=== PATIENT | female | born 1975 | race Caucasian/White ===

== ENCOUNTER 2017-05-30 09:29 | Inpatient (IN) | payer OTHER ==
[~2017-05-30] VITALS: Ht 172.7 cm; Wt 59.4 kg
--- NOTE | 2017-05-30 09:32 | NUR ---
PRESENTS SELF TO ED DT CONSTANT HEADACHE FOR 3DAYS, PT AA04 NO APPARENT DISTRESS RESP EVEN AND UNLABORED. NO SOB. PT TEMP 101.2. NON DIAPHORETIC. NOTED WITH SLIGHT CHILLS. CONNECTED PT TO TELE MONITOR. PENDING MD MORAN.
--- NOTE | 2017-05-30 09:40 | NUR ---
MD NIELSON AT BS
[2017-05-30] MEDS ORDERED: IV NS 0.9% 1,000 ML BAG IV ONE (10:00)
[2017-05-30] MEDS ORDERED: CEFTRIAXONE 1GM BAG (ER ONLY) 1 GM/50 ML PIGGYBACK IV ONE (10:00)
[2017-05-30] MEDS ORDERED: ACETAMINOPHEN 325 MG TABLET PO ONE (10:00)
[2017-05-30] MEDS ORDERED: CEFTRIAXONE 1GM BAG (ER ONLY) 100 ML IV ONE (10:08)
[2017-05-30] MEDS ORDERED: ACETAMINOPHEN 325 MG TABLET ONE (10:08)
[2017-05-30] MEDS ORDERED: IV NS 0.9% 2,000 ML ONE (10:08)
[2017-05-30] MEDS ORDERED: IV SET PRIMARY PUMP SET 1 EA INFUS.SET MC ONE ×2 (10:09→11:40)
[2017-05-30 10:20] LABS: BASOPHILS % (AUTO) 0.2 % (0.0-2.0); HEMATOCRIT 38 % (33-45); HEMOGLOBIN 12.6 g/dL (11.5-14.8); LYMPHOCYTES # (AUTO) 0.6 /CMM (0.8-4.8); LYMPHOCYTES % (AUTO) 4.2 % (20.0-44.0); MEAN CORPUSCULAR HEMOGLOBIN 30 PG (26.0-33.0); MEAN CORPUSCULAR HGB CONC 34 g/dl (31.0-36.0); MEAN CORPUSCULAR VOLUME 89 fL (82-100); MONOCYTES # (AUTO) 0.8 /CMM (0.1-1.30); MONOCYTES % (AUTO) 5.7 % (2.0-12.0); NEUTROPHILS # (AUTO) 12.7 /CMM (1.8-8.9); NEUTROPHILS % (AUTO) 89.9 % (43.0-81.0); PLATELET COUNT (AUTO) 241 /CMM (150-450); RDW COEFFICIENT OF VARIATION 12.9 (11.5-15.0); RED BLOOD CELL COUNT(AUTO) 4.24 MIL/uL (4.0-5.2); WHITE BLOOD COUNT (AUTO) 14.2 K/uL (4.3-11.0)
--- NOTE | 2017-05-30 10:24 | NUR ---
URINE SAMPLE SENT TO LAB
--- NOTE | 2017-05-30 10:25 | NUR ---
DUE MEDS GIVEN ORDERED
[2017-05-30] MEDS ORDERED: MORPHINE SULFATE INJ 4 MG/ML DISP.SYRIN ONE (10:26)
[2017-05-30] MEDS ORDERED: ONDANSETRON HCL/PF 4 MG/2 ML VIAL ONE (10:26)
[2017-05-30 10:29] LABS: CALCIUM, SERUM 8.3 mg/dL (8.5-10.1); CARBON DIOXIDE 27 mmol/L (21-32); CHLORIDE 104 mmol/L (98-107); CREATININE 0.8 mg/dL (0.6-1.3); GLUCOSE 127 mg/dL (74-106); POTASSIUM 3.8 mmol/L (3.5-5.1); SODIUM SERUM 136 mmol/L (136-145); UREA NITROGEN, BLOOD 5 mg/dL (7-18)
[2017-05-30 10:30] LABS: INR 1.07 (0.87-1.13); PROTHROMBIN TIME 11.1 SECS (9.5-12.7)
[2017-05-30 10:30] LABS: APPEARANCE,URINE Clear (CLEAR); BILIRUBIN,URINE SMALL (NEGATIVE); BLOOD, URINE Negative Ery/uL (NEGATIVE); COLOR,URINE Yellow (YELLOW); KETONES,URINE 15 (NEGATIVE); LEUKOCYTE ESTERASE ,URINE Negative (NEGATIVE); NITRITE, URINE Negative (NEGATIVE); PH,URINE 5.5 (5.0-8.0); PROTEIN,URINE 30 mg/dl (NEGATIVE); UGLUCOSE Negative (NEGATIVE); UROBILINOGEN,URINE 0.2 EU/dL (0.2)
[2017-05-30 10:34] LABS: TROPONIN I < 0.017 ng/mL (0.00-0.056)
[2017-05-30 10:37] LABS: ALANINE AMINOTRANSFERASE 13 U/L (12-78); ALBUMIN 3.6 g/dL (3.4-5.0); ALKALINE PHOSPHATASE 42 U/L (46-116); ASPARTATE AMINOTRANSFERASE 13 U/L (15-37); BILIRUBIN,DIRECT 0.1 mg/dL (0.0-0.2); BILIRUBIN,TOTAL 0.5 mg/dL (0.2-1.0); TOTAL PROTEIN, SERUM 7.1 g/dL (6.4-8.2)
[2017-05-30 10:44] LABS: BACTERIA,URINE None seen /HPF (None Seen); MUCUS,URINE Few /LPF (None Seen); SQUAMOUS EPITHELIAL CELL,UR Few /HPF (None Seen)
--- NOTE | 2017-05-30 10:54 | NUR ---
Solo connolly in [facility] - 05/30/17 at 1055 by DRAKE REPORT GIVEN TO NURSE MIKE BETANCOURT
--- NOTE | 2017-05-30 10:54 | NUR ---
REPORT GIVEN TO NURSE MCKEON FOR ASIA
[2017-05-30] MEDS ORDERED: HYDROMORPHONE 1 MG/1 ML DISP.SYRIN ONE (10:59)
[2017-05-30] MEDS ORDERED: ONDANSETRON HCL/PF - ER 4 MG/2 ML VIAL IV ONE (11:00)
[2017-05-30] MEDS ORDERED: HYDROMORPHONE 1 MG/1 ML DISP.SYRIN IV ONE (11:00)
[2017-05-30] MEDS ORDERED: MORPHINE SULFATE INJ 10 MG/ML DISP.SYRIN IV ONE (11:00)
--- NOTE | 2017-05-30 11:03 | NUR ---
PT TAKEN TO CT SCAN.
--- NOTE | 2017-05-30 11:23 | NUR ---
TELE 310-1
--- NOTE | 2017-05-30 11:30 | NUR ---
MD SOLORZANO AT FOR LUMBAR PUNCTURE
--- NOTE | 2017-05-30 11:36 | NUR ---
PHARMACY CALLED FOR ATB
--- NOTE | 2017-05-30 11:45 | NUR ---
LUMBAR PUNCTURE DONE AT BY DR. SOLORZANO. CONSENTS SIGNED. PT TOLERATED PROCEDURE WELL. SPECIMENS SENT TO LAB. VSS. WILL MONITOR.
--- NOTE | 2017-05-30 11:49 | NUR ---
REPORT GIVEN TO LAUREANO GUTIERREZ FOR CONTINUITY OF CARE.
--- NOTE | 2017-05-30 11:51 | NUR ---
RECEIVED REPORT FROM ZEE GUNN RN
[2017-05-30] MEDS ORDERED: VANCOMYCIN 1 GM in IV D5W 250 ML IV ONE (12:00)
[2017-05-30] MEDS ORDERED: IV NS 0.9% 1,000 ML IV PRN (12:50)
[2017-05-30 12:59] LABS: CSF GLUCOSE 60 mg/dL (40-70)
[2017-05-30 13:00] LABS: CSF PROTEIN 87.6 mg/dL (15-45)
[2017-05-30] MEDS ORDERED: ZOLPIDEM TARTRATE 5 MG TABLET PO PRN (13:00)
[2017-05-30] MEDS ORDERED: MAG HYDROX/AL HYDROX/SIMETH 30 ML UDC PO PRN (13:00)
[2017-05-30] MEDS ORDERED: Z GUARD REMEDY 2 OZ OINT TP PRN (13:00)
[2017-05-30] MEDS ORDERED: MAGNESIUM HYDROXIDE 30 ML UDC PO PRN (13:00)
[2017-05-30] MEDS ORDERED: FEE PK DOSING 1 MIN EA MC ONE (13:33)
[2017-05-30] MEDS ORDERED: ACYCLOVIR IV 600 MG in IV D5W 100 ML IV SCH (14:30)
--- NOTE | 2017-05-30 15:11 | NUR ---
PT TRANSPORTED TO [address] [place] [address]
--- NOTE | 2017-05-30 15:14 | NUR ---
ISOLATION PRECAUTION OBSERED
--- NOTE | 2017-05-30 15:15 | NUR ---
RN ADMITTING ORDER PATIENT ARRIVED TO UNIT AT 1510. PATIENT PAIN LEVEL 8/10. TEMPERATURE 103.1. WILL CONTINUE TO ASSESS AND MONITOR PATIENT. WILL CONTACT MD FOR PAIN MANAGEMENT AND FEVER CONTROL
[2017-05-30] MEDS: ACETAMINOPHEN 325 MG TABLET PO PRN ×2 (15:38→21:27)
[2017-05-30 15:45] VITALS: BP 135/75
--- NOTE | 2017-05-30 15:45 | NUR ---
DE HVAC REFRIGERATION TECHNICIAN MADE AWARE OF FEVER AND PAIN. NEW ORDERS RECEIVED AND CARRIED OUT
[2017-05-30] MEDS: HYDROMORPHONE 1 MG/1 ML DISP.SYRIN IV PRN ×2 (15:48→19:58)
[2017-05-30] MEDS: IV NS 0.9% 1,000 ML IV PRN (15:48)
--- NOTE | 2017-05-30 17:10 | NUR ---
LEFT SIDE RASH NOTED BETWEEN ARMPIT AND BREAST. DE MADE AWARE. PICTURES WERE TAKEN AND PLACED IN THE CHART
--- NOTE | 2017-05-30 18:15 | NUR ---
NEW IV SITE STARTED AT LEFT FOREARM 22G.
--- NOTE | 2017-05-30 18:50 | NUR ---
RN CLOSING NOTES PATIENT IS IN BED, ALERT AND ORIENTED TO NAME, TIME AND PLACE. NO SIGNS AND SYMPTOMS OF DISTRESS. ALL NEEDS ANTICIPATED AND NURSING CARE PROVIDED. PATIENT KEPT SAFE, CLEAN AND DRY. IV SITES X2 ARE INTACT AND POTENT. PAIN LEVEL 3/10 HEADACHE. ISOLATION FOR MENINGITIS. BED IN LOW POSITION, LOCKED AND TWO SIDE RAILS ARE UP. WILL ENDORSE TO SHEETER HELPER NURSE.
--- NOTE | 2017-05-30 19:33 | NUR ---
AIRCRAFT STRESS ANALYST OPENING NOTES: PATIENT IN BED, AOX4, ON ROOM AIR, BREATHING EVEN AND UNLABORED. STATES THAT HER HEADACHE IS STILL PRESENT, BUT FEELS BETTER, APPEARS CALM AND IN NO DISTRESS. PIV OVER RAC G 20 INTACT AND PATENT TO FLUSH, PIV OVER LFA G22 INTACT AND INFUSING WELL WITH NS RUNNING AT 100 ML/HR. PROVIDED FOR COMFORT AND SAFETY. BED IN LOWEST AND LOCKED POSITION, SIDERAILS UP X3. WILL CONT TO MONITOR.
[2017-05-30] MEDS ORDERED: SECONDARY IV SET 1 EA INFUS.SET MC ONE (19:59)
--- NOTE | 2017-05-30 20:00 | NUR ---
RN NOTES: PT COMPLAINED OF 9/10 HEADACHE. ADMINISTERED DILAUDID 1 MG IV PRN. ALSO ENCOURAGED INCREASED PO INTAKE. PATIENT COMPLIANT. WILL CONT TO MONITOR.
[2017-05-30] MEDS: VANCOMYCIN 0.75 GM in IV D5W 250 ML IV SCH (20:02)
[2017-05-30 20:40] VITALS: BP 124/73
--- NOTE | 2017-05-30 21:00 | NUR ---
RN NOTES: PATIENT IS BEING RULED OUT FOR VIRAL OR BACTERIAL MENINGITIS. NSG MOUNTAIN OR GLACIER GUIDE AND CN CAME TO TEST RM 317 FOR NEGATIVE PRESSURE, HOWEVER, IT IS STILL MALFUNCTIONING. PER NSG MOUNTAIN OR GLACIER GUIDE, PATIENT HAS TO BE TRANSFERRED TO NEG PRESSURE RM.
[2017-05-30] MEDS: CEFTRIAXONE 2 G in IV D5W 100 ML IV SCH (21:21)
[2017-05-30] MEDS: ACYCLOVIR IV 500 MG in IV D5W 100 ML IV SCH (22:06)
--- NOTE | 2017-05-30 22:20 | NUR ---
RN NOTES: REPORT GIVEN TO FAITH RN FOR ASIA TO ROOM 101.
--- NOTE | 2017-05-30 22:35 | NUR ---
RN NOTES: RECEIVED TRANSFER FROM [facility]; FULL REPORT RECEIVED FROM LAUREANO BAIELY. PATIENT ALOX4 AND VERBALLY RESPONSIVE. ON ROOM AIR NOT IN APPARENT DISTRESS, ABLE TO AMBULATE WITH STEADY GAIT. PATIENT TRANSFERRED DUE TO AIRBORNE PRECAUTIONS RULING OUT BACTERIAL VS VIRAL MENINGITIS. PLACED ON PRE SALES SYSTEMS ENGINEER, HR AT 75 BPM, SINUS RHYTHM ON MONITOR. IV ACCESS NOTED ON RIGHT AC G20 SL AND LEFT FOREARM G22 PATENT AND INTACT, IVF INFUSING ORDERED. WITH COMPLAINTS OF HEADACHE RATED 8/10 AND NAUSEA AT THIS TIME. PATIENT NOTED TO TRY TO VOMIT IN THE BATHROOM BUT NO VOMITUS NOTED. OT GIVE PRN PAIN MEDS AND ANTI NAUSEA MEDS ORDERED. SAFETY MEASURES ENSURED. PATIENT CLAIMS TO BE ALLERGIC TO DOXYCYLINE WITH RASH HER REACTION TO IT. TO NOTE ALLERGY. NOTED PATIENT TO HAVE RASH ON LEFT LATERAL TRUNK AREA, NEAR THE LEFT ARMPIT ACROSS THE BREAST AREA. PICTURED NOTED TO BE FILED IN CHART. CALL LIGHT WITHIN REACH. CONTINUOUSLY MONITORED PT.
--- NOTE | 2017-05-30 22:38 | NUR ---
RN NOTES: TRANSFERRED PATIENT TO [facility] / NEGATIVE PRESSURE ROOM FOR AIRBORNE PRECAUTIONS. PATIENT WAS TRANSFERRED VIA ACLS PROTOCOL, IN STABLE CONDITION.
[2017-05-31] VITALS: BP 118/69
[2017-05-31] MEDS: ONDANSETRON HCL/PF 4 MG/2 ML VIAL IVP PRN ×4 (00:37→23:00)
[2017-05-31] MEDS: HYDROMORPHONE 1 MG/1 ML DISP.SYRIN IV PRN ×6 (00:38→22:48)
[2017-05-31 04:00] VITALS: BP 120/70
[2017-05-31] MEDS: VANCOMYCIN 0.75 GM in IV D5W 250 ML IV SCH ×3 (04:00→20:22)
[2017-05-31] MEDS: ACYCLOVIR IV 500 MG in IV D5W 100 ML IV SCH ×3 (05:14→21:24)
[2017-05-31] MEDS: IV NS 0.9% 1,000 ML IV PRN ×2 (05:14→21:20)
[2017-05-31 06:29] LABS: BASOPHILS % (AUTO) 0.1 % (0.0-2.0); HEMATOCRIT 29 % (33-45); HEMOGLOBIN 9.8 g/dL (11.5-14.8); LYMPHOCYTES # (AUTO) 0.6 /CMM (0.8-4.8); LYMPHOCYTES % (AUTO) 5.5 % (20.0-44.0); MEAN CORPUSCULAR HEMOGLOBIN 31 PG (26.0-33.0); MEAN CORPUSCULAR HGB CONC 34 g/dl (31.0-36.0); MEAN CORPUSCULAR VOLUME 90 fL (82-100); MONOCYTES % (AUTO) 8.8 % (2.0-12.0); NEUTROPHILS # (AUTO) 9.6 /CMM (1.8-8.9); NEUTROPHILS % (AUTO) 85.6 % (43.0-81.0); PLATELET COUNT (AUTO) 158 /CMM (150-450); RDW COEFFICIENT OF VARIATION 12.8 (11.5-15.0); RED BLOOD CELL COUNT(AUTO) 3.21 MIL/uL (4.0-5.2); WHITE BLOOD COUNT (AUTO) 11.2 K/uL (4.3-11.0)
--- NOTE | 2017-05-31 06:43 | NUR ---
RN CLOSING NOTES: PT REMAINED IN BED NOT IN APPARENT DISTRESS. KEPT ON ROOM AIR TOLERATED WELL; REMAINED SR ON MONITOR. IV ACCESS REMAINED PATENT AND INTACT, IVF INFUSING ORDERED. PRN PAIN MANAGEMENT DONE, ZOFRAN FOR NAUSEA GIVEN, NO ACTUAL VOMITING NOTED. AM LABS DRAWN WITH RESULT PENDING. SAFETY MEASURES ENSURED. AIRBORNE PREC OBSERVED AT ALL TIMES. CALL LIGHT WITHIN REACH. CONTINUOUSLY MONITORED. TO ENDORSE TO AM SHIFT RN.
[2017-05-31 06:50] LABS: THYROID STIMULATING HORMONE 1.002 uIU/mL (0.358-3.74)
[2017-05-31 06:52] LABS: CALCIUM, SERUM 6.9 mg/dL (8.5-10.1); CREATININE 0.6 mg/dL (0.6-1.3); MAGNESIUM 1.5 mg/dL (1.8-2.4)
--- NOTE | 2017-05-31 07:30 | NUR ---
INITIAL NOTE RESTING IN BED A+O X3, VERBALIZES NEEDS. 8/10 HEAD AND NECK PAIN. No SOB. BL IV patent, no complications. Airborn isolation. discussed plan of care.
[2017-05-31 08:00] VITALS: BP 125/68
[2017-05-31] MEDS ORDERED: KETOROLAC TROMETHAMINE INJ 30 MG/ML VIAL IM STA (08:41)
--- NOTE | 2017-05-31 08:44 | NUR ---
GLUCOSE CRITICAL VALUE CHECKED FINGER STICK GLUCOSE, NOTED 96. DR. SOUSA REVIEWED RESULTS, SAID GLUCOSE SEEMS FALSE HIGH AND NON-SIGNIFICANT FINDING AT THIS TIME.
[2017-05-31] MEDS ORDERED: KETOROLAC TROMETHAMINE INJ 30 MG/ML VIAL IV PRN (09:00)
[2017-05-31] MEDS: CEFTRIAXONE 2 G in IV D5W 100 ML IV SCH ×2 (09:12→22:46)
[2017-05-31] MEDS: PANTOPRAZOLE 40 MG TABLET.DR PO SCH (09:12)
[2017-05-31] MEDS ORDERED: DEXAMETHASONE SOD PHOSPHATE 10 MG/ML VIAL IV STA (09:23)
[2017-05-31 12:00] VITALS: BP 126/73
[2017-05-31] MEDS ORDERED: IV SET PRIMARY PUMP SET 1 EA INFUS.SET MC ONE ×3 (12:04→22:31)
[2017-05-31] MEDS: POTASSIUM CHLORIDE 20 MEQ TAB.PRT.SR PO SCH ×3 (12:19→14:23)
[2017-05-31] MEDS: Magnesium 1GM/D5W 100ML PREMIX 100 ML IV SCH ×2 (12:19→13:48)
[2017-05-31] MEDS ORDERED: K PHOS NEUTRAL 250 MG TABLET PO ONE (12:30)
[2017-05-31 13:29] LABS: CALCIUM, SERUM 8.1 mg/dL (8.5-10.1); CREATININE 0.6 mg/dL (0.6-1.3); POTASSIUM 3.5 mmol/L (3.5-5.1)
[2017-05-31 16:00] VITALS: BP 125/78
--- NOTE | 2017-05-31 19:02 | NUR ---
CLOSING NOTE HANDED OFF REPORT. PATIENT DENIES ANY ADVERSE REACTION TO MEDICATION THIS SHIFT. ENCOURAGED PO NUTRITIONAL INTAKE ALTHOUGH PATIENT STATES NOT HAVING AN APPETITE, ALTHOUGH DENYING NAUSEA. PROVIDED AMPLE EDUCATION REGARDING PLAN OF CARE, MEDICATION, INCLUDING S/E OF NARCOTIC USE. FREQUENT ROUNDING. BL IV PATENT, NO COMPLICATIONS AT INSERTION SITE. CALL LIGHT IN REACH. FAMILY AT BED SIDE. DROPLET PRECAUTION OBSERVED. LEFT MESSAGE FOR INFECTION CONTROL NURSING TO F/U WITH ISOLATION STATUS.
[2017-05-31 20:00] VITALS: BP 123/76
--- NOTE | 2017-05-31 20:04 | NUR ---
RN NOTES RECEIVED PATIENT IN BED, AWAKE WITH FAMILIES AT BEDSIDE. ALERT AND ORIENTED X 3. CONTINENT OF BOWEL AND BLADDER FUNCTION. AMBULATORY. VERBALIZES NEEDS. NOTED RASHES ON LEFT SIDE NEAR BREAST. ON IV DRIP NS AT 100CC/HOUR TO RIGHT ANTICUBITAL, TOLERATING WELL. ON ATB VANCOMYCIN, ROCEPHIN AND ZOVERAX, NO ADVERSE EFFECT NOTED. CONTINUE TO MONITOR.
--- NOTE | 2017-05-31 21:00 | NUR ---
RN NOTES: DR CORONEL IN S/E PATIENT, ORDERED FOR ADDITIONAL CSF TESTS; CONFIRMED WITH TAR WORKER IRENA THAT THERE IS ENOUGH CSF SPECIMEN TO RUN ADDED TESTS ORDERED BY ID . DR CORONEL MADE AWARE; ALSO CONFIRMED WITH MD TO KEEP AIRBORNE PREC UNTIL APPROPRIATE TEST RESULTS COMES OUT. NOTED AND MADE PATIENT AND FAMILY MEMBER AWARE. CONTINUOUSLY MONITORED PT.
[2017-05-31] MEDS ORDERED: SECONDARY IV SET 1 EA INFUS.SET MC ONE (21:08)
[2017-05-31] MEDS: FLUCONAZOLE IN NS,PREMIX 400 MG in PREMIX 1 EA IV SCH ×2 (21:25)
[2017-06-01] VITALS: BP 125/78
--- NOTE | 2017-06-01 00:37 | NUR ---
RN NOTES SOLO, ENTERED TWICE, NOT A TRUE ADMINISTRATION
[2017-06-01] MEDS: VANCOMYCIN 0.75 GM in IV D5W 250 ML IV SCH (03:32)
[2017-06-01 04:00] VITALS: BP 129/78
[2017-06-01] MEDS: ACYCLOVIR IV 500 MG in IV D5W 100 ML IV SCH ×3 (05:32→21:31)
[2017-06-01] MEDS ORDERED: SECONDARY IV SET 1 EA INFUS.SET MC ONE ×2 (05:34→22:38)
--- NOTE | 2017-06-01 06:34 | NUR ---
RN CLOSING NOTES PATIENT IN BED, SLEEPING. EASILY AROUSABLE. STATED SHE DOES NOT HAVE ANY HEADACHE AT ALL. NO DISTRESS, VITAL SIGNS WITHIN NORMAL LIMITS. CONTINUOUSLY MONITORED.
[2017-06-01 06:52] LABS: BASOPHILS % (AUTO) 0.2 % (0.0-2.0); HEMATOCRIT 32 % (33-45); HEMOGLOBIN 11.1 g/dL (11.5-14.8); LYMPHOCYTES # (AUTO) 0.7 /CMM (0.8-4.8); MEAN CORPUSCULAR HEMOGLOBIN 31 PG (26.0-33.0); MEAN CORPUSCULAR HGB CONC 35 g/dl (31.0-36.0); MEAN CORPUSCULAR VOLUME 89 fL (82-100); MONOCYTES # (AUTO) 0.8 /CMM (0.1-1.30); NEUTROPHILS # (AUTO) 7.6 /CMM (1.8-8.9); NEUTROPHILS % (AUTO) 82.8 % (43.0-81.0); PLATELET COUNT (AUTO) 177 /CMM (150-450); RDW COEFFICIENT OF VARIATION 12.7 (11.5-15.0); RED BLOOD CELL COUNT(AUTO) 3.62 MIL/uL (4.0-5.2); WHITE BLOOD COUNT (AUTO) 9.2 K/uL (4.3-11.0)
[2017-06-01 06:58] LABS: CALCIUM, SERUM 7.9 mg/dL (8.5-10.1); CREATININE 0.6 mg/dL (0.6-1.3); MAGNESIUM 2.2 mg/dL (1.8-2.4); POTASSIUM 4.2 mmol/L (3.5-5.1)
[2017-06-01] MEDS: PANTOPRAZOLE 40 MG TABLET.DR PO SCH (07:30)
[2017-06-01 08:00] VITALS: BP 120/75
--- NOTE | 2017-06-01 08:00 | NUR ---
INITIAL NOTE RESTING IN BED A+O X3, VERBALIZES NEEDS. PATIENT COMPLAINS OF NO SOB , HEADACHES, OR PAIN AT THIS TIME . pt has BL IV patent, no complications. Airborne isolation OBSERVED AND FOLLOWED . Discussed plan of care WITH THE PATIENT . nursing sTAFF WILL CONTINUE TO FOLLOW.
[2017-06-01] MEDS: CEFTRIAXONE 2 G in IV D5W 100 ML IV SCH ×2 (08:03→20:11)
[2017-06-01] MEDS: HYDROMORPHONE 1 MG/1 ML DISP.SYRIN IV PRN ×3 (08:13→20:40)
--- NOTE | 2017-06-01 11:00 | NUR ---
RN NOTE RN SPOKE WITH DR. DE LA O INFECTIOUS DISEASE IN REGARDS TO THE PATIENT RECENTLY ORDERED CSF LABS. ALL LAB PENDING CURRENTLY . MD NOTIFIED RN TO CONTACT PATHOLOGY TO FIND OUT IF THERE WAS A NEED FOR FURTHER CSF FLUID TO RUN ALL REQUESTED LABS. RN SPOKE WITH PATHOLOGY AND WAS INFORMED THAT THERE WAS NOT ENOUGH CSF FOR THE PATHOLOGY LABS ONLY BUT ALL OTHER LAB ARE PENDING X 3-4 DAY - LABS WERE SENT OUT TO [facility]. CALLED AWAITING RETURN PHONE CALL CHARGE NURSE RAINA NOTIFIED AND CONTACTED [facility] AND PATHOLOGY TO CONFIRM.
--- NOTE | 2017-06-01 11:29 | NUR ---
RN NOTE RN SPOKE WITH DR. GAMEZ IN REGARDS TO THE LACK OF CSF FLUID TO RUN THE PATHOLOGY REPORT RN NOTIFIED THAT THAT IS OK NO NEED FOR FURTHER EVALUATION PENDING OTHER RESULTS. NOTIFIED THAT OTHER LAB WILL TAKE 3-4 DAYS FOR RETURN RESULTS. NURSING STAFF WILL CONTINUE TO MONITOR.
[2017-06-01 12:11] LABS: *BACT BETA STREP (GROUP B) AG Negative (Negative); *BACT NEISSERIA MENING. AG Negative (Negative); *BACT STREP PNEUMONIAE AG Negative (Negative)
--- NOTE | 2017-06-01 13:00 | NUR ---
RN NOTE PATIENT STATED SHE ATE 50 PERCENT OF HER FOOD DURING LUNCH.MINOR PAIN EXPRESSED
[2017-06-01] MEDS: IV NS 0.9% 1,000 ML IV PRN (13:39)
[2017-06-01 16:00] VITALS: BP 120/70
--- NOTE | 2017-06-01 18:47 | NUR ---
RN CLOSING NOTES PATIENT IN BED, A/OX 4 EASILY AROUSABLE. STATED SHE DOES NOT HAVE ANY HEADACHE AT ALL. NO DISTRESS, VITAL SIGNS WITHIN NORMAL LIMITS. CONTINUOUSLY MONITORED. PT HOWEVER COMPLAINS OF IV DISCOMFORT IN HER LEFT WRIST. AM NURSE4 WILL ENDORSE TO PM NURSE FOR REMOVAL OF IV
--- NOTE | 2017-06-01 19:20 | NUR ---
RN INITIAL NOTE RECEIVED PT IN NO ACUTE DISTRESS IN BED. PT IS A/O X 4 AND ABLE TO MAKE NEEDS KNOWN. PT IS ON ISOLATION VIA N95 MASK/GOWN/GLOVES FOR POSSIBLE MENINGITIS. PT IS ON RA AND TOLERATING WELL WITH O2 SAT @ 98%. PT HAS O2 VIA NC @ 2LPM IF NEEDED. PT IS NOT C/O ANY SOB, DIFFICULTY BREATHING, BUT HAS PAIN @ 5/10. PT NOT ASKING FOR ANY PAIN MEDS AT THIS TIME, PT STATES "I WILL LET YOU KNOW WHEN I WANT PAIN MEDICATION". PT HAS BRP AND IS ABLE TO AMBULATE TO RESTROOM WITHOUT ASSISTANCE AND PT HAS STEADY GAIT. PT HAS RAC 20G THAT IS CLEAN DRY INTACT AND PATENT WITH SALINE LOCK. PT HAS L WRIST 22G THAT IS CLEAN DRY INTACT, BUT PT C/O PAIN WITH FLUSH. WILL REMOVE IV PER PT REQUEST. BED IN LOW LOCK POSITION WITH RIALS UP X 2. CALL LIGHT WITHIN REACH AND ALL SAFETY MEASURES ENSURED AND CARRIED OUT WILL CONTINUE TO MONITOR PT.
[2017-06-01 20:00] VITALS: BP 122/81
[2017-06-01] MEDS: ONDANSETRON HCL/PF 4 MG/2 ML VIAL IVP PRN (20:41)
[2017-06-01] MEDS: FLUCONAZOLE IN NS,PREMIX 400 MG in PREMIX 1 EA IV SCH ×2 (22:40)
[2017-06-02] MEDS: HYDROMORPHONE 1 MG/1 ML DISP.SYRIN IV PRN ×5 (02:15→20:12)
[2017-06-02 04:00] VITALS: BP 130/81
[2017-06-02] MEDS: ACYCLOVIR IV 500 MG in IV D5W 100 ML IV SCH ×3 (04:18→21:09)
[2017-06-02] MEDS: IV NS 0.9% 1,000 ML IV PRN (04:18)
--- NOTE | 2017-06-02 07:00 | NUR ---
RN CLOSING NOTE PT REMAINS IN NO ACUTE DISTRESS IN BED. PT DID NOT HAVE ANY SIGNIFICANT CHANGE IN CONDITION DURING SHIFT. ALL NEEDS MET ALL ORDERS CARRIED OUT. PT DID NOT HAVE ANY SIGNIFICANT CHANGE IN CONDITION DURING SHIFT. WILL ENDORSE REPORT TO AM RN FOR CONTINUITY OF CARE.
--- NOTE | 2017-06-02 07:00 | NUR ---
INITIAL NOTE RESTING IN BED A+O X3, VERBALIZES NEEDS. PATIENT COMPLAINS OF NO SOB , PATIENT DOES COMPLAINS OF HEADACHES, OR PAIN AT THIS TIME .PT HAS BL IV patent, no complications. Airborne isolation OBSERVED AND FOLLOWED . Discussed plan of care WITH THE PATIENT . NURSING STAFF WILL CONTINUE TO FOLLOW.
[2017-06-02 07:18] LABS: BASOPHILS % (AUTO) 0.2 % (0.0-2.0); EOSINOPHILS % (AUTO) 0.2 % (0.0-6.0); HEMATOCRIT 32 % (33-45); HEMOGLOBIN 11.2 g/dL (11.5-14.8); LYMPHOCYTES # (AUTO) 1.3 /CMM (0.8-4.8); LYMPHOCYTES % (AUTO) 13.3 % (20.0-44.0); MEAN CORPUSCULAR HEMOGLOBIN 31 PG (26.0-33.0); MEAN CORPUSCULAR HGB CONC 35 g/dl (31.0-36.0); MEAN CORPUSCULAR VOLUME 89 fL (82-100); MONOCYTES # (AUTO) 0.8 /CMM (0.1-1.30); NEUTROPHILS # (AUTO) 7.4 /CMM (1.8-8.9); NEUTROPHILS % (AUTO) 78.3 % (43.0-81.0); PLATELET COUNT (AUTO) 237 /CMM (150-450); RDW COEFFICIENT OF VARIATION 12.9 (11.5-15.0); RED BLOOD CELL COUNT(AUTO) 3.63 MIL/uL (4.0-5.2); WHITE BLOOD COUNT (AUTO) 9.4 K/uL (4.3-11.0)
[2017-06-02] MEDS: PANTOPRAZOLE 40 MG TABLET.DR PO SCH (07:30)
[2017-06-02 08:00] VITALS: BP 117/71
[2017-06-02 08:00] LABS: CALCIUM, SERUM 7.8 mg/dL (8.5-10.1); CREATININE 0.7 mg/dL (0.6-1.3); MAGNESIUM 1.7 mg/dL (1.8-2.4); PHOSPHORUS 2.2 mg/dL (2.5-4.9); POTASSIUM 3.7 mmol/L (3.5-5.1)
[2017-06-02] MEDS: HYDROCODONE/APAP 5/325MG 1 EACH TABLET PO PRN ×2 (09:52→14:47)
[2017-06-02] MEDS: CEFTRIAXONE 2 G in IV D5W 100 ML IV SCH (09:52)
--- NOTE | 2017-06-02 10:00 | NUR ---
RN NOTE RN SPOKE WITH DR. CORONEL ISOLATION IS CLEAR. PATIENT CURRENTLY SPEAKING TO MD IN REGARDS TO CURRENT PLAN OF CARE. PATIENT EXPRESS CONCERNS IN REGARDS TO POSSIBLE BLOOD IN URINE MD ORDER URINALYSIS/ CULTURE RN WILL FOLLOW ORDERS
--- NOTE | 2017-06-02 10:42 | NUR ---
RN NOTE SPOKE WITH THE LAB TODAY PER DR. CORONEL REQUESTED UPDATE ON FUNGAL CSF REPORT , CP BLEACHER OPERATOR NOTIFIED RN THAT RESULTS CAN TAKE UP TO 1 WEEK DUE TO THIS LABS BEING SOURCED OUT TO ANOTHER LAB.RN WILL UPDATED MD UPON HER RETURN TO THE UNIT. RN WILL CONTINUE TO FOLLOW
[2017-06-02] MEDS ORDERED: SECONDARY IV SET 1 EA INFUS.SET MC ONE (11:56)
[2017-06-02] MEDS: Magnesium 1GM/D5W 100ML PREMIX 100 ML IV SCH ×2 (12:04→13:08)
[2017-06-02] MEDS ORDERED: K PHOS NEUTRAL 250 MG TABLET PO ONE (12:30)
[2017-06-02] MEDS ORDERED: Magnesium 1GM/D5W 100ML PREMIX 100 ML IV SCH (12:30)
[2017-06-02] MEDS: ONDANSETRON HCL/PF 4 MG/2 ML VIAL IVP PRN (13:01)
--- NOTE | 2017-06-02 13:44 | NUR ---
RN NOTE PATIENT HAD EXPERIENCED SOME NAUSEA AND VOMITING PRN ZOFRAN GIVEN AND MEDICATION EFFECTIVE PATIENT RESTING
--- NOTE | 2017-06-02 14:52 | NUR ---
RN NOTE RN OFFERED DILAUDID AND NORCO FOR PAIN MANAGEMENT PER PATIENTS REQUEST PATIENT INSTEAD CHANGED HER MIND ABOUT WANTING BOTH MEDICATIONS AT THIS TIME RN INFORMED PATIENT TO NOTIFY HER WHEN SHE NEEDS THE MEDICATION FOR PAIN MANAGEMENT RN WILL CONTINUE TO FOLLOW
--- NOTE | 2017-06-02 18:30 | NUR ---
RN NOTE PATIENT IV REMOVED DUE TO PAIN/ SWELLING AND REDNESS AT THE IV SITE. MIDLINE INSERTED CHRISTEN 18G. CLEAN DRY INTACT SL. RN WILL ENDORSE TO PM SHIFT TO RESTART IV FLUIDS. RN WILL CONTINUE TO FOLLOW.
[2017-06-02 19:12] LABS: *HIV-1 RNA BY PCR <20 copies/mL (.)
--- NOTE | 2017-06-02 19:30 | NUR ---
MS RN INITIAL NOTES RECEIVED PATIENT AWAKE A/OX4, ABLE TO MAKE NEEDS KNOWN. FAMILY AT BEDSIDE. PATIENT STATES SHE HAS HEADACHE 6/10 AND PREFERS DILAUDID WHEN DUE. STATES IT HELPS HER BETTER. RESPIRATIONS EVEN AND UNLABORED. DENIES SOB. SKIN WARM AND DRY TO TOUCH. PATIENT WITH IVF. SIDE RAILS UP AND LOCKED. BED KEPT AT LOWEST POSITION. CALL LIGHT KEPT WITHIN EASY REACH. WILL CONTINUE TO MONITOR.
[2017-06-02 20:00] VITALS: BP 127/77
[2017-06-02] MEDS: FLUCONAZOLE IN NS,PREMIX 400 MG in PREMIX 1 EA IV SCH ×2 (21:10)
--- NOTE | 2017-06-03 00:04 | NUR ---
MS RN NOTES PATIENT C/O FEELING ITCHY AFTER TAKING DILAUDID AND REQUESTING FOR BENADRYL ORDER, STATES SHE DOES IT NEED IT RIGHT NOW. INFORMED ANDREA WITH ORDERS NOTED. WILL CONTINUE TO MONITOR.
[2017-06-03] MEDS ORDERED: diphenhydrAMINE HCL 25 MG CAPSULE PO PRN (00:30)
[2017-06-03] MEDS: HYDROMORPHONE 1 MG/1 ML DISP.SYRIN IV PRN ×3 (01:44→11:48)
[2017-06-03 04:00] VITALS: BP 136/79
[2017-06-03] MEDS: ACYCLOVIR IV 500 MG in IV D5W 100 ML IV SCH ×3 (04:46→21:09)
[2017-06-03] MEDS: IV NS 0.9% 1,000 ML IV PRN ×2 (04:46→18:47)
[2017-06-03 05:01] LABS: APPEARANCE,URINE CLEAR (CLEAR); BILIRUBIN,URINE NEGATIVE (NEGATIVE); COLOR,URINE YELLOW (YELLOW); KETONES,URINE NEGATIVE (NEGATIVE); LEUKOCYTE ESTERASE ,URINE NEGATIVE (NEGATIVE); NITRITE, URINE NEGATIVE (NEGATIVE); PROTEIN,URINE NEGATIVE (NEGATIVE); UGLUCOSE NEGATIVE (NEGATIVE); UROBILINOGEN,URINE 0.2 EU/dL (0.2)
[2017-06-03 05:05] LABS: BLOOD, URINE TRACE Ery/uL (NEGATIVE)
[2017-06-03 05:06] LABS: BACTERIA,URINE None seen /HPF (None Seen); RBC,URINE 0-2 /HPF (0-2); SQUAMOUS EPITHELIAL CELL,UR Few /HPF (None Seen); WBC,URINE 0-2 /HPF (0-3)
[2017-06-03 06:47] LABS: BASOPHILS % (AUTO) 0.3 % (0.0-2.0); EOSINOPHILS # (AUTO) 0.1 /CMM (0.0-0.7); EOSINOPHILS % (AUTO) 1.1 % (0.0-6.0); HEMATOCRIT 30 % (33-45); HEMOGLOBIN 10.5 g/dL (11.5-14.8); LYMPHOCYTES # (AUTO) 1.1 /CMM (0.8-4.8); MEAN CORPUSCULAR HEMOGLOBIN 30 PG (26.0-33.0); MEAN CORPUSCULAR HGB CONC 35 g/dl (31.0-36.0); MEAN CORPUSCULAR VOLUME 88 fL (82-100); MONOCYTES # (AUTO) 0.7 /CMM (0.1-1.30); MONOCYTES % (AUTO) 9.1 % (2.0-12.0); NEUTROPHILS # (AUTO) 6.1 /CMM (1.8-8.9); NEUTROPHILS % (AUTO) 75.5 % (43.0-81.0); PLATELET COUNT (AUTO) 276 /CMM (150-450); RDW COEFFICIENT OF VARIATION 12.3 (11.5-15.0); RED BLOOD CELL COUNT(AUTO) 3.45 MIL/uL (4.0-5.2); WHITE BLOOD COUNT (AUTO) 8.1 K/uL (4.3-11.0)
[2017-06-03 07:00] LABS: CALCIUM, SERUM 8.2 mg/dL (8.5-10.1); CREATININE 0.6 mg/dL (0.6-1.3); PHOSPHORUS 4.4 mg/dL (2.5-4.9); POTASSIUM 3.6 mmol/L (3.5-5.1)
--- NOTE | 2017-06-03 07:24 | NUR ---
MS RN CLOSING NOTES NO SIGNIFICANT CHANGES OVERNIGHT. ALL NEED ANTICIPATED AND MET. NO EPISODE OF N/V. PAIN MANAGED NEED. DENIES SOB. SKIN WARM AND DRY TO TOUCH. AMBULATORY WITH NO COMPLICATIONS. IVF RUNNING. SIDE RAILS UP AND LOCKED. BED KEPT AT LOWEST POSITION. CALL LIGHT KEPT WITHIN EASY REACH. WILL CONTINUE TO MONITOR. Addendum: 06/03/17 at 0728 by HELEN BENITEZ RN CONTINUITY OF CARE ENDORSED TO AM NURSE.
--- NOTE | 2017-06-03 07:43 | NUR ---
MS RN NOTE PATIENT IN BED , ALL NEEDS ATTENDED , ALERT ORIENTED, NO C\O HEADACHE AT THIS TIME, CALL LIGHT WITHIN REACH ,PLAN OF CARER DISUSED WITH PATIENT ON RA NO SON NOTED , BED IN LOWEST AND LOCKED POSITION , RT UPPER ARM MID LINE IN PLACE , ON IVF ORDERED ,WILL CONT TO MONITOR CLOSELY ,
[2017-06-03 08:00] VITALS: BP 134/79
[2017-06-03] MEDS: PANTOPRAZOLE 40 MG TABLET.DR PO SCH (08:02)
[2017-06-03 08:10] LABS: *WEST NILE VIRUS IgG, CSF Negative (Negative)
[2017-06-03 08:10] LABS: *WEST NILE VIRUS, IgG, SERUM Negative (Negative)
--- NOTE | 2017-06-03 10:45 | NUR ---
MS RN NOTE SPOKE WITH DR GOLDSTEIN NOTIFIED THAT C\O LT LEG PAIN, DUPLEX ORDERED, ALSO PER DR SOUSA SUGGESTER TO ORDER NAPROXEN
[2017-06-03] MEDS ORDERED: ALPRAZOLAM 0.25 MG TABLET PO PRN (11:30)
[2017-06-03] MEDS: NAPROXEN 250 MG TABLET PO SCH ×2 (12:00→18:47)
--- NOTE | 2017-06-03 13:30 | NUR ---
MS RN NOTE RESTING COMFORTABLY AFTER DILAUDID GIVEN FOR HEADACHE, CONT ON IVF ORDERED .DAUGHTER AT BEDSIDE WILL CONT TO MONITOR CLOSELY
[2017-06-03 16:00] VITALS: BP 140/77
--- NOTE | 2017-06-03 16:27 | NUR ---
MS RN NOTE DUPLEX STUDY ON LT LEG DONE ORDERED , NOT IN ACUTE DISTRESS
--- NOTE | 2017-06-03 19:30 | NUR ---
MS RN INITIAL NOTES RECEIVED PATIENT AWAKE, A/OX4, ABLE TO MAKE NEEDS KNOWN. STATES SHE'S FEELING BETTER TODAY, WITH MINIMAL HEADACHE. C/O COLD BREEZE COMING FROM VENT MAKES HER HEADACHES WORST, ENGINEERING INFORMED, AND PROBLEM WAS FIXED. FAMILY AT BEDSIDE. RESPIRATIONS EVEN AND UNLABORED, SKIN WARM AND DRY TO TOUCH. PATIENT IN PLEASANT MOOD. AMBULATES TO RESTROOM WITH NO COMPLICATIONS. NO C/O N/V. WITH CHRISTEN MIDLINE PATENT AND INTACT, IVF RUNNING AT 100ML/HR. SIDE RAILS UP AND LOCKED. BED KEPT AT LOWEST POSITION. CALL LIGHT KEPT WITHIN EASY REACH. WILL CONTINUE TO MONITOR.
[2017-06-03 20:00] VITALS: BP 130/83
[2017-06-03] MEDS: FLUCONAZOLE IN NS,PREMIX 400 MG in PREMIX 1 EA IV SCH ×2 (21:09)
[2017-06-04] MEDS: HYDROMORPHONE 1 MG/1 ML DISP.SYRIN IV PRN (00:04)
[2017-06-04 04:00] VITALS: BP_SYST 137; BP_DIAS 83; BP_DIAS 84
[2017-06-04] MEDS: ACYCLOVIR IV 500 MG in IV D5W 100 ML IV SCH ×3 (05:18→20:22)
[2017-06-04 06:48] LABS: CALCIUM, SERUM 8.2 mg/dL (8.5-10.1); CREATININE 0.5 mg/dL (0.6-1.3); POTASSIUM 3.7 mmol/L (3.5-5.1)
--- NOTE | 2017-06-04 07:40 | NUR ---
MS RN CLOSING NOTES NO SIGNIFICANT CHANGES OVERNIGHT. PATIENT STATED SHE SLEPT WELL THROUGH THE NIGHT. NO RESPIRATORY DISTRESS NOTED ON RA. DENIES N/V. PAIN MANAGED NEEDED. ALL NEEDS ANTICIPATED AND MET. IVF RUNNING. SIDE RAILS UP AND LOCKED. BED KEPT AT LOWEST POSITION. CALL LIGHT KEPT WITHIN EASY REACH. CONTINUITY OF CARE ENDORSED TO AM NURSE.
[2017-06-04 08:00] VITALS: BP 124/80
[2017-06-04] MEDS: NAPROXEN 250 MG TABLET PO SCH ×2 (08:05→17:08)
[2017-06-04] MEDS: PANTOPRAZOLE 40 MG TABLET.DR PO SCH (08:05)
[2017-06-04] MEDS: IV NS 0.9% 1,000 ML IV PRN (10:12)
[2017-06-04 15:09] LABS: *WEST NILE VIRUS IgM, CSF Positive (Negative)
[2017-06-04 16:00] VITALS: BP 118/73
[2017-06-04] MEDS: ACETAMINOPHEN 325 MG TABLET PO PRN (17:08)
[2017-06-04 18:12] LABS: *HSV 1 DNA PCR Negative (Negative); *HSV 2 DNA PCR Negative (Negative)
[2017-06-04 20:00] VITALS: BP 139/73
[2017-06-04] MEDS: FLUCONAZOLE IN NS,PREMIX 400 MG in PREMIX 1 EA IV SCH ×2 (20:22)
[2017-06-05] MEDS: HYDROMORPHONE 1 MG/1 ML DISP.SYRIN IV PRN ×2 (00:05→19:34)
[2017-06-05 04:00] VITALS: BP 131/76
[2017-06-05] MEDS: IV NS 0.9% 1,000 ML IV PRN ×2 (04:27→19:34)
[2017-06-05] MEDS: ACYCLOVIR IV 500 MG in IV D5W 100 ML IV SCH (04:28)
[2017-06-05 06:39] LABS: BASOPHILS # (AUTO) 0.1 /CMM (0.0-0.2); BASOPHILS % (AUTO) 0.8 % (0.0-2.0); EOSINOPHILS # (AUTO) 0.4 /CMM (0.0-0.7); EOSINOPHILS % (AUTO) 3.4 % (0.0-6.0); HEMATOCRIT 31 % (33-45); HEMOGLOBIN 10.5 g/dL (11.5-14.8); LYMPHOCYTES # (AUTO) 1.5 /CMM (0.8-4.8); LYMPHOCYTES % (AUTO) 12.4 % (20.0-44.0); MEAN CORPUSCULAR HEMOGLOBIN 30 PG (26.0-33.0); MEAN CORPUSCULAR HGB CONC 34 g/dl (31.0-36.0); MEAN CORPUSCULAR VOLUME 88 fL (82-100); MONOCYTES # (AUTO) 1.1 /CMM (0.1-1.30); MONOCYTES % (AUTO) 8.8 % (2.0-12.0); NEUTROPHILS # (AUTO) 9.1 /CMM (1.8-8.9); NEUTROPHILS % (AUTO) 74.6 % (43.0-81.0); PLATELET COUNT (AUTO) 322 /CMM (150-450); RDW COEFFICIENT OF VARIATION 12.7 (11.5-15.0); RED BLOOD CELL COUNT(AUTO) 3.52 MIL/uL (4.0-5.2); WHITE BLOOD COUNT (AUTO) 12.2 K/uL (4.3-11.0)
[2017-06-05 06:59] LABS: ALBUMIN 2.8 g/dL (3.4-5.0); BILIRUBIN,TOTAL 0.4 mg/dL (0.2-1.0); CALCIUM, SERUM 8.4 mg/dL (8.5-10.1); CREATININE 0.6 mg/dL (0.6-1.3); MAGNESIUM 1.9 mg/dL (1.8-2.4); PHOSPHORUS 3.9 mg/dL (2.5-4.9); POTASSIUM 4.5 mmol/L (3.5-5.1)
--- NOTE | 2017-06-05 07:10 | NUR ---
RN INITIAL NOTES: REC'D PT AWAKE ON BED, A/O X4, DENIES ANY PAIN/ DISCOMFORT. ON ROOM AIR, NO SOB. PT HAS CHRISTEN MIDLINE PATENT/ INTACT W/ NO S/SX OF INFECTION/ INFILTRATION W/ NS X 100 CC/HR INFUSING WELL. PROVIDED COMFORT & SAFETY MEASURES. BED KEPT LOW & IN LOCKED POS. CALL LIGHT PLACED W/IN REACH. WILL CONTINUE TO MONITOR.
[2017-06-05 08:00] VITALS: BP 144/68
--- NOTE | 2017-06-05 08:00 | NUR ---
RN NOTES: FOLLOWED UP FROM LABS CSF PENDING RESULTS, THEY SAID IT MIGHT BE TOMORROW OR WEDNESDAY. PT MADE AWARE.
[2017-06-05] MEDS: NAPROXEN 250 MG TABLET PO SCH ×2 (08:27→17:33)
[2017-06-05] MEDS: PANTOPRAZOLE 40 MG TABLET.DR PO SCH (08:27)
--- NOTE | 2017-06-05 10:00 | NUR ---
RN NOTES: PT SEEN & EXAMINED BY DR. GOLDSTEIN. MADE HER AWARE OF WBC 12.2, ORDERED FOR UA W/ CS AND CXR. PT INFORMED.
--- NOTE | 2017-06-05 11:30 | NUR ---
RN NOTES: PT SEEN & EXAMINED BY DR. CORONEL W/ ORDERS & CARRIED OUT.
[2017-06-05 14:10] LABS: APPEARANCE,URINE CLEAR (CLEAR); BILIRUBIN,URINE NEGATIVE (NEGATIVE); BLOOD, URINE NEGATIVE Ery/uL (NEGATIVE); COLOR,URINE OTHER (YELLOW); KETONES,URINE NEGATIVE (NEGATIVE); LEUKOCYTE ESTERASE ,URINE NEGATIVE (NEGATIVE); NITRITE, URINE NEGATIVE (NEGATIVE); PH,URINE 7.5 (5.0-8.0); PROTEIN,URINE NEGATIVE (NEGATIVE); UGLUCOSE NEGATIVE (NEGATIVE); UROBILINOGEN,URINE 0.2 EU/dL (0.2)
[2017-06-05 16:00] VITALS: BP 130/79
--- NOTE | 2017-06-05 18:55 | NUR ---
RN CLOSING NOTES: NO ACUTE CHANGES W/IN SHIFT. CHRISTEN MIDLINE KEPT PATENT/ INTACT W/ NO S/SX OF INFECTION/ INFILTRATION W/ NS X 100 CC/HR INFUSING WELL. KEPT WELL RESTED. NEEDS ATTENDED. BED KEPT LOW & IN LOCKED POS. CALL LIGHT PLACED W/IN REACH. WILL ENDORSE TO PM RN FOR ASIA.
[2017-06-05 20:00] VITALS: BP 138/72
--- NOTE | 2017-06-05 20:00 | NUR ---
RN INITIAL NOTE; PT ON THE BED WITHOUT ANY DISTRESS . PT IS A/O X 4 , BREATHING EVEN AND UNLABORED ON ROOM AIR . CHRISTEN MIDLINE INTACT AND PATENT WITH CONTINUE NS @ 100 ML/HR. C/O HEADACHE 08/01 , PRN DILAUDID 1 MG IV GIVEN . TOLERATED WELL AT THIS TIME . WILL REASSESS . CONTINENT TO BOWEL/BLADDER . BED IN THE LOWEST/LOCKED POSITION . SAFETY MEASURES APPLIED. WILL CONTINUE TO MONITOR .
[2017-06-05] MEDS ORDERED: FLUCONAZOLE (100 MG) 100 MG TABLET PO SCH (21:00)
[2017-06-06] MEDS: HYDROMORPHONE 1 MG/1 ML DISP.SYRIN IV PRN (00:35)
--- NOTE | 2017-06-06 01:00 | NUR ---
PRN DILAUDID 1 MG IV GIVEN FOR HEADACHE 08/01 . TOLERATED WELL AT THIS TIME . WILL REASSESS
[2017-06-06 04:00] VITALS: BP 129/77
[2017-06-06] MEDS: IV NS 0.9% 1,000 ML IV PRN (05:31)
--- NOTE | 2017-06-06 06:50 | NUR ---
RN EOS NOTE; PT REMAINED STABLE DURING THE SHIFT . NO ANY DISTRESS NOTED . IVF TOLERATED WELL. PRN DILAUDID 1 MG IV GIVEN FOR HEADACHE . ALL NEEDS ATTENDED PROMPTLY. WILL ENDORSE TO NEXT SHIFT RN FOR CONTINUITY OF CARE.
[2017-06-06 07:01] LABS: BASOPHILS % (AUTO) 0.5 % (0.0-2.0); EOSINOPHILS # (AUTO) 0.3 /CMM (0.0-0.7); EOSINOPHILS % (AUTO) 4.2 % (0.0-6.0); HEMATOCRIT 32 % (33-45); HEMOGLOBIN 10.8 g/dL (11.5-14.8); LYMPHOCYTES # (AUTO) 1.5 /CMM (0.8-4.8); LYMPHOCYTES % (AUTO) 18.7 % (20.0-44.0); MEAN CORPUSCULAR HEMOGLOBIN 30 PG (26.0-33.0); MEAN CORPUSCULAR HGB CONC 34 g/dl (31.0-36.0); MEAN CORPUSCULAR VOLUME 89 fL (82-100); MONOCYTES # (AUTO) 0.8 /CMM (0.1-1.30); MONOCYTES % (AUTO) 9.4 % (2.0-12.0); NEUTROPHILS # (AUTO) 5.4 /CMM (1.8-8.9); NEUTROPHILS % (AUTO) 67.2 % (43.0-81.0); PLATELET COUNT (AUTO) 352 /CMM (150-450); RDW COEFFICIENT OF VARIATION 12.9 (11.5-15.0); RED BLOOD CELL COUNT(AUTO) 3.58 MIL/uL (4.0-5.2); WHITE BLOOD COUNT (AUTO) 8.1 K/uL (4.3-11.0)
--- NOTE | 2017-06-06 07:10 | NUR ---
MS RN NOTES RECEIVED PATIENT IN BED, AWAKE, A/O X4. BREATHING EVEN AND NON LABORED, ON ROOM AIR, TOLERATING WELL, NO SOB. IV NS INFUSING AT 100ML/HR, NO C/O PAIN AT THIS TIME. CALL LIGHT WITHIN REACH. WILL CONT TO MONITOR.
[2017-06-06 07:33] LABS: BILIRUBIN,DIRECT 0.1 mg/dL (0.0-0.2); BILIRUBIN,TOTAL 0.4 mg/dL (0.2-1.0); CALCIUM, SERUM 8.5 mg/dL (8.5-10.1); CREATININE 0.6 mg/dL (0.6-1.3); MAGNESIUM 1.9 mg/dL (1.8-2.4); POTASSIUM 3.7 mmol/L (3.5-5.1); TOTAL PROTEIN, SERUM 6.1 g/dL (6.4-8.2)
[2017-06-06 08:00] VITALS: BP 122/71
[2017-06-06] MEDS: NAPROXEN 250 MG TABLET PO SCH (08:06)
[2017-06-06] MEDS: PANTOPRAZOLE 40 MG TABLET.DR PO SCH (08:06)
--- NOTE | 2017-06-06 12:02 | NUR ---
PATIENT IS SEEN BY DR. CORONEL TODAY, SPOKE TO THE PATIENT. PER MD PATIENT CAN GO HOME TODAY AND PENDING CSF RESULT CAN BE FOLLOW UP IN HER OFFICE. PER DR. CORONEL, SHE WILL INFORM DR. GOLDSTEIN.
--- NOTE | 2017-06-06 14:17 | NUR ---
PATIENT IS PREPARED TO BE DISCHARGED TODAY, DR. GOLDSTEIN WAS INFORMED. CHARGE NURSE IS AWARE.
--- NOTE | 2017-06-06 14:40 | NUR ---
PATIENT TO BE DISCHARGED HOME ORDERED.
[2017-06-06] MEDS: HYDROCODONE/APAP 5/325MG 1 EACH TABLET PO PRN (14:45)
--- NOTE | 2017-06-06 16:19 | NUR ---
MS RN DISCHARGED PATIENT HAS BEEN CLEARED FOR DISCHARGE HOME BY MD. PATIENT IS AMBULATORY, SKIN INTACT. NO RASHES IN BETWEEN HER LEFT AXILLA AND BREAST, RASH FROM ADMISSION DISAPPEARED, NO PHOTOS TAKEN. NO C/O PAIN OR ANY DISCOMFORT. BELONGINGS CHECKED AND SEND UPON DC. DISCHARGE INSTRUCTION GIVEN TO THE PATIENT, VERBALIZED UNDERSTANDING. PATIENT LEFT IN STABLE CONDITION VIA PRIVATE CAR ACCOMPANIED BY HER DAUGHTER.
[2017-06-07 14:13] LABS: *CRYPTOCOCCUS AG, CSF Negative (Negative)
[2017-06-07 16:14] LABS: *WEST NILE VIRUS, IgM, SERUM Positive (Negative)
== END 2017-06-06 16:31 | disposition home or self-care (01) | DRG 871 ==
LOC: ER 09:31 → TELE 12:09 → TELE1 22:38 → MEDSG1 05-31 11:40
PROVIDERS: ADMIT Nurse Practitioner Acute Care; ATTEND Nurse Practitioner Acute Care
PROC: 05H533Z Insertion of Infusion Device into Right Subclavian Vein, Percutaneous Approach (ICD-10-PCS; principal; 2017-06-02)
DX: A41.9 Sepsis, unspecified organism (principal); A92.31 West Nile virus infection with encephalitis; A87.9 Viral meningitis, unspecified; D64.9 Anemia, unspecified; G43.909 Migraine, unspecified, not intractable, without status migrainosus; G44.209 Tension-type headache, unspecified, not intractable; Z82.49 Family history of ischemic heart disease and other diseases of the circulatory system; Z82.3 Family history of stroke; G89.29 Other chronic pain; F17.200 Nicotine dependence, unspecified, uncomplicated
CPT/HCPCS: 36415; 70450-TC; 71010-TC; 80048-TC; 80053-TC; 80061-TC; 80076-TC; 80202-TC; 81000-TC; 82962-TC; 83605-TC; 83735-TC; 84100-TC; 84443-TC; 84484-TC; 84703-TC; 85025-TC; 85730-TC; 86635; 86694; 86788; 86789; 87040-TC; 87070-TC; 87081-TC; 87086-TC; 87102-TC; 87536; 87802; 87899; 89051-TC; 93970-TC; A4216; A4606; A6402; J0133; J0696; J1100; J1170; J1450; J1885; J2270; J2405; J3370; J3475; J7030; J7060; Z7610